=== PATIENT | female | born 1995 | race Caucasian/White ===

== ENCOUNTER 2018-09-14 13:06 | Emergency (ER) | payer OTHER ==
--- NOTE | 2018-09-14 16:06 | ER ---
Nurse's Notes [facility] Name: Adilene Jimenez Age: 22 yrs Sex: Female : 1995 Arrival Date: 09/14/2018 Time: 13:11 Bed External Waiting Private MD: Bhargav, None Diagnosis: Presentation: 09/14 13:18 Presenting complaint: Patient states: "I've had a migraine and been feeling dizzy for aa5 the past 2 days". Pt states "I also have a pain on my left side (left flank". Transition of care: patient was not received from another setting of care. Note Pt was sent to [facility] per protocol. Pt reported being 26 weeks . 13:18 Method Of Arrival: Ambulatory aa5 16:05 Note Contacted [facility] and they stated they dc'd pt. Pt did not return to ER. aa5 Vital Signs: 13:18 BP 141 / 87; Pulse 102; Resp 16 S; Temp 98.1(O); Pulse Ox 98% on R/A; aa5 ED Course: 13:11 Patient arrived in ED. mr 13:12 None, None is Private Physician. mr 16:06 Killian Ascencio MD is Attending Physician. aa5 Administered Medications: No medications were administered Outcome: 16:06 Patient left the ED. aa5 Signatures: Crystal Duckworth Audri, RN RN aa5
== END 2018-09-14 16:06 | disposition left against medical advice (07) ==
LOC: ER 13:06
DX: O26.892 Other specified pregnancy related conditions, second trimester (principal); Z3A.16 16 weeks gestation of pregnancy
CPT/HCPCS: 99281

== ENCOUNTER 2018-10-13 12:51 | Emergency (ER) | payer OTHER ==
--- NOTE | 2018-10-13 14:14 | EDPHYS ---
Physician Documentation [facility] Name: Adilene Jimenez Age: 22 yrs Sex: Female : 1995 Arrival Date: 10/13/2018 Time: 12:54 Bed 11 Private MD: ED Physician Jay Hartman HPI: 10/13 14:10 This 22 yrs old Female presents to ER via Ambulatory with complaints of Dog jr8 Bite. 14:10 The patient was bitten on the left hand, by a dog, as a result of being attacked by the jr8 animal, outdoors. Onset: The symptoms/episode began/occurred acutely, today. Animal information: The animal was reported to appear healthy. is unknown, The animal is unknown and not captured. Secondary to the bite the patient reports a contusion, pain, multiple puncture wounds. Associated signs and symptoms: The patient has no apparent associated signs or symptoms. Severity of symptoms: At their worst the symptoms were mild, in the emergency department the symptoms are unchanged. The patient has not experienced similar symptoms in the past. The patient has not recently seen a physician. Was walking her dog when another dog approached them and wanted to attack her dog. Tried to stop them and in the process was but in the hand by the other dog . 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 - Social history:: Smoking status: Patient/guardian denies using tobacco. - Ebola Screening: : No symptoms or risks identified at this time. ROS: 14:10 Eyes: Negative for injury, pain, redness, and discharge, ENT: Negative for injury, jr8 pain, and discharge, Neck: Negative for injury, pain, and swelling, Cardiovascular: Negative for chest pain, palpitations, and edema, Respiratory: Negative for shortness of breath, cough, wheezing, and pleuritic chest pain, Abdomen/GI: Negative for abdominal pain, nausea, vomiting, diarrhea, and constipation, Back: Negative for injury and pain, Skin: Negative for injury, rash, and discoloration, Neuro: Negative for headache, weakness, numbness, tingling, and seizure. 14:10 MS/extremity: Positive for ecchymosis, pain, puncture, swelling, tenderness, of the left hand. Exam: 14:10 Cardiovascular: Regular rate and rhythm with a normal S1 and S2. No gallops, murmurs, jr8 or rubs. Normal PMI, no JVD. No pulse deficits. Respiratory: Lungs have equal breath sounds bilaterally, clear to auscultation and percussion. No rales, rhonchi or wheezes noted. No increased work of breathing, no retractions or nasal flaring. Abdomen/GI: Soft, non-tender, with normal bowel sounds. No distension or tympany. No guarding or rebound. No evidence of tenderness throughout. Back: No spinal tenderness. No costovertebral tenderness. Full range of motion. Skin: Warm, dry with normal turgor. Normal color with no rashes, no lesions, and no evidence of cellulitis. Neuro: Awake and alert, GCS 15, oriented to person, place, time, and situation. Cranial nerves II-XII grossly intact. Motor strength 5/5 in all extremities. Sensory grossly intact. Cerebellar exam normal. Normal gait. 14:10 Musculoskeletal/extremity: Extremities: grossly normal except: noted in the dorsum of left hand: Superficial lacerations and small 1-2 mm puncture wounds noted to dorsum left hand. Mild bruising noted as well, ROM: intact in all extremities, full active range of motion, full passive range of motion, Circulation is intact in all extremities. Sensation intact. Vital Signs: 12:59 BP 123 / 88; Pulse 87; Resp 18 S; Temp 98.2(O); Pulse Ox 100% on R/A; Weight 81.65 kg 7 (R); Height 5 ft. 3 in. (160.02 cm) (R); Pain 0/10; 12:59 Body Mass Index 31.89 (81.65 kg, 160.02 cm) 7 MDM: 13:34 Patient medically screened. jr8 14:10 Data reviewed: vital signs, nurses notes, and as a result, I will discharge patient. jr8 Data interpreted: Pulse oximetry: on room air is 100 %. Interpretation: normal. Counseling: I had a detailed discussion with the patient and/or guardian regarding: the historical points, exam findings, and any diagnostic results supporting the discharge/admit diagnosis, the need for outpatient follow up, a family practitioner, to return to the emergency department if symptoms worsen or persist or if there are any questions or concerns that arise at home. ED course: Patient up to date on Tetanus . Administered Medications: No medications were administered Disposition: 15:28 Co-signature as Attending Physician, Jay Hartman MD I agree with the assessment and champ plan of care. Disposition: 10/13/18 14:13 Discharged to Home. Impression: Bitten by dog. - Condition is Stable. - Discharge Instructions: Puncture Wound, Animal Bite. - Prescriptions for Augmentin 875- 125 mg Oral Tablet - take 1 tablet by ORAL route every 12 hours for 10 days; 20 tablet. - Medication Reconciliation Form, Thank You Letter, Antibiotic Education, Prescription Opioid Use form. - Follow up: Private Physician; When: 2 - 3 days; Reason: Recheck today's complaints, Continuance of care, Re-evaluation by your physician. - Problem is new. - Symptoms have improved. Signatures: Jay Hartman MD MD cha Roszak, Josh, PA PA jr8 Alisson Colunga RN RN jl7 Corrections: (The following items were deleted from the chart) 14:31 14:13 10/13/2018 14:13 Discharged to Home. Impression: Bitten by dog. Condition is jl7 Stable. Forms are Medication Reconciliation Form, Thank You Letter, Antibiotic Education, Prescription Opioid Use. Follow up: Private Physician; When: 2 - 3 days; Reason: Recheck today's complaints, Continuance of care, Re-evaluation by your physician. Problem is new. Symptoms have improved. jr8
--- NOTE | 2018-10-13 14:14 | ER ---
Nurse's Notes [facility] Name: Adilene Jimenez Age: 22 yrs Sex: Female : 1995 Arrival Date: 10/13/2018 Time: 12:54 Bed 11 Private MD: Diagnosis: Bitten by dog Presentation: 10/13 12:56 Presenting complaint: Patient states: Stray dog came up and attacked my dog while I was jl7 walking my dog. I'm not sure if it was my dog that bit me or the other dog. It happened here in by the [place] around 1100. Reports pt is 28 Weeks . Superficial abrasions noted to left hand and index finer, swelling noted to left index finger. Transition of care: patient was not received from another setting of care. Onset of symptoms was October 13, 2018 at 11:00. Risk Assessment: Do you want to hurt yourself or someone else? Patient reports no desire to harm self or others. Initial Sepsis Screen: Does the patient meet any 2 criteria? No. Patient's initial sepsis screen is negative. Does the patient have a suspected source of infection? No. Patient's initial sepsis screen is negative. Care prior to arrival: None. 12:56 Method Of Arrival: Ambulatory 7 12:56 Acuity: MIKALA 4 jl7 Triage Assessment: 12:59 Bite description: bite. jl7 12:59 Bite description: bite sustained to dorsal aspect of proximal phalanx of left middle jl7 finger and dorsum of left hand by a dog, animal information: vaccination(s) is unknown. General: Appears in no apparent distress. uncomfortable, Behavior is calm, cooperative, appropriate for age. Pain: Denies pain. 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 - Social history:: Smoking status: Patient/guardian denies using tobacco. - Ebola Screening: : No symptoms or risks identified at this time. Screenin:00 Abuse screen: Denies threats or abuse. Denies injuries from another. Nutritional jl7 screening: No deficits noted. Tuberculosis screening: No symptoms or risk factors identified. Fall Risk None identified. Assessment: 13:00 General: Appears in no apparent distress. uncomfortable, Behavior is calm, cooperative, jl7 appropriate for age. Pain: Denies pain. Neuro: Level of Consciousness is awake, alert, obeys commands, Oriented to person, place, time, situation. Cardiovascular: Patient's skin is warm and dry. Respiratory: Airway is patent Respiratory effort is even, unlabored, Respiratory pattern is regular, symmetrical. Derm: Skin Abrasions noted to left index finger Skin is pink, warm \T\ dry. 14:00 Reassessment: No changes from previously documented assessment. Patient and/or family jl7 updated on plan of care and expected duration. Pain level reassessed. Patient is alert, oriented x 3, equal unlabored respirations, skin warm/dry/pink. Vital Signs: 12:59 BP 123 / 88; Pulse 87; Resp 18 S; Temp 98.2(O); Pulse Ox 100% on R/A; Weight 81.65 kg jl7 (R); Height 5 ft. 3 in. (160.02 cm) (R); Pain 0/10; 12:59 Body Mass Index 31.89 (81.65 kg, 160.02 cm) jl7 ED Course: 12:54 Patient arrived in ED. mr 12:58 Triage completed. jl7 12:59 Arm band placed on right wrist. Patient placed in waiting room, Patient notified of jl7 wait time. 13:34 [facility] jr8 13:34 Jay Hartman MD is Attending Physician. jr8 14:00 Patient has correct armband on for positive identification. Bed in low position. Call jl7 light in reach. Side rails up X 1. 14:01 Galina Phillips, VERITO is Primary Nurse. iw 14:20 Wound care: to abrasion, located on left hand was cleaned with Hibiclens, dressed with jl7 Neosporin, band aid, Patient tolerated well. 14:29 No provider procedures requiring assistance completed. Patient did not have IV access jl7 during this emergency room visit. Administered Medications: No medications were administered Outcome: 14:13 Discharge ordered by . jr8 14:29 Discharged to home ambulatory. jl7 14:29 Condition: stable 14:29 Discharge instructions given to patient, Instructed on discharge instructions, follow up and referral plans. medication usage, Demonstrated understanding of instructions, follow-up care, medications. 14:31 Patient left the ED. jl7 Signatures: Crystal DuckworthGalina, RN RN iw Michael Carr PA PA jr8 Alisson Colunga RN RN jl7 Corrections: (The following items were deleted from the chart) 13:00 12:56 Presenting complaint: Patient states: Stray dog came up and attacked my dog while jl7 I was walking my dog. I'm not sure if it was my dog that bit me or the other dog. It happened here in by the [place] around 1100 jl7 13:01 12:56 Presenting complaint: Patient states: Stray dog came up and attacked my dog while jl7 I was walking my dog. I'm not sure if it was my dog that bit me or the other dog. It happened here in by [place] around 1100. Reports pt is 28 Weeks . Superficial abrasions noted to right hand and index finer, swelling noted to right index finger jl7
== END 2018-10-13 14:31 | disposition home or self-care (01) ==
LOC: ER 12:51
DX: S61.432A Puncture wound without foreign body of left hand, initial encounter (principal); W54.0XXA Bitten by dog, initial encounter; Y93.K1 Activity, walking an animal; Y92.9 Unspecified place or not applicable
CPT/HCPCS: 99283